=== PATIENT | female | born 1975 | race Caucasian/White ===

== ENCOUNTER → 2020-10-29 16:26 | Outpatient (CLI) | payer OTHER, SELFPAY ==
[2020-10-29 17:00] LABS: COVID19 -Nasal RAPID Negative (Negative)
== END ==
PROVIDERS: Visit Provider Nurse Practitioner Family
DX: Z20.822 Contact with and (suspected) exposure to COVID-19 (principal); R43.0 Anosmia; R43.2 Parageusia
CPT/HCPCS: 87635